=== PATIENT | male | born 1990 | race Asian ===

== ENCOUNTER 2017-01-30 18:40 | Emergency (ER) | payer MEDICAID, OTHER ==
[~2017-01-30] VITALS: Ht 170.2 cm; Wt 128.0 kg
[2017-01-30 22:30] VITALS: BP 141/78
[2017-01-30] MEDS ORDERED: BACITRACIN ZINC OINT UDPKT TOP ONE (22:30)
[2017-01-30] MEDS ORDERED: TETANUS, DIPHTHERIA, PERTUSSIS VAC/PF 0.5ML (>7YR OLD) IM ONE (22:30)
[2017-01-30] MEDS ORDERED: LIDOCAINE HCL 1% 20ML VIAL (Pyxis) INJ MC ONE (22:30)
== END 2017-01-31 00:09 | disposition home or self-care (01) ==
LOC: ER 22:31
DX: S61.411A Laceration without foreign body of right hand, initial encounter (principal); W45.8XXA Other foreign body or object entering through skin, initial encounter; Y93.89 Activity, other specified; Y99.9 Unspecified external cause status; Y92.89 Other specified places as the place of occurrence of the external cause; Z23 Encounter for immunization
CPT/HCPCS: 12002; 90471; 90715; 99283; J3490; X7700

== ENCOUNTER 2019-12-12 10:41 | Emergency (ER) | payer MEDICAID, OTHER ==
[~2019-12-12] VITALS: Ht 180.3 cm; Wt 107.0 kg
[2019-12-12 10:54] VITALS: BP 143/97
== END 2019-12-12 12:48 | disposition left against medical advice (07) ==
LOC: ER 10:47
DX: R07.89 Other chest pain (principal); Z53.21 Procedure and treatment not carried out due to patient leaving prior to being seen by health care provider
CPT/HCPCS: 93005